=== PATIENT | female | born 1950 | race Caucasian/White ===

== ENCOUNTER → 2016-12-03 | Outpatient (CLI) | payer OTHER | LOC: FIMAGING 09:50 | DX: Z12.31 Encounter for screening mammogram for malignant neoplasm of breast (principal) | CPT/HCPCS: G0202 ==

== ENCOUNTER → 2018-01-15 | Outpatient (CLI) | payer OTHER | LOC: FIMAGING 13:21 | PROVIDERS: ATTEND Internal Medicine | DX: Z13.820 Encounter for screening for osteoporosis (principal); M81.0 Age-related osteoporosis without current pathological fracture ==

== ENCOUNTER → 2018-12-22 | Outpatient (CLI) | payer OTHER | LOC: BMCIMAGING 10:35 | PROVIDERS: ATTEND Podiatrist Foot & Ankle Surgery | DX: M25.572 Pain in left ankle and joints of left foot (principal) ==

== ENCOUNTER → 2019-01-12 | Outpatient (CLI) | payer OTHER | LOC: BMCIMAGING 11:09 | PROVIDERS: ATTEND Podiatrist Foot & Ankle Surgery | DX: M79.605 Pain in left leg (principal); Z96.652 Presence of left artificial knee joint ==

== ENCOUNTER → 2019-01-26 | Outpatient (CLI) | payer OTHER | LOC: FIMAGING 12:56 | PROVIDERS: ATTEND Internal Medicine | DX: Z12.31 Encounter for screening mammogram for malignant neoplasm of breast (principal) ==